=== PATIENT | male | born 1940 | race Two or more races ===

== ENCOUNTER 2023-10-17 09:01 | Outpatient (CLI) | payer OTHER | END 2023-10-17 09:03 | disposition home or self-care (01) | LOC: SONOGRAMA 09:01 | PROVIDERS: ATTEND Pathology Anatomic Pathology & Clinical Pathology | DX: D48.7 Neoplasm of uncertain behavior of other specified sites (principal); E04.2 Nontoxic multinodular goiter ==

== ENCOUNTER → 2024-05-01 | Emergency (ER) | payer OTHER ==
[~2024-05-01] VITALS: Ht 167.6 cm; Wt 81.6 kg
[~2024-05-01] MED LIST: AMIODARONE HCL100 MG PO; BUMETANIDE2 MG PO; COZAAR100 MG PO; ISORDIL TITRADOS5 MG PO; NORVASC5 MG PO; OMEGA-31000 MG PO; PROSTATE 2.4 C1 EACH PO; SYNTHROID75 MCG PO; TERAZOSIN HCL5 MG PO; ZETIA10 MG PO
[2024-05-01 09:40] LABS: HEMATOCRIT 28.8 % (39.0-48.0); HEMOGLOBIN 9.9 g/dL (13-16.00); MEAN CELL VOLUME 97.6 fL (80.0-100.00); MEAN CORPUSCULAR HEMOGLOBIN 33.5 pg (27.00-32.0); MEAN CORPUSCULAR HGB CONC 34.4 g/dl (32.0-36.0); PLATELET COUNT 152 K/uL (150-450); RED BLOOD COUNT 2.95 M/uL (4.00-6.00); RED CELL DISTRIBUTION WIDTH 16.3 % (11.5-14.5)
[2024-05-01 09:44] LABS: URINE APPEARANCE Clear; URINE BILIRRUBIN Negative (NEGATIVE); URINE BLOOD Trace; URINE COLOR Yellow; URINE GLUCOSE Negative (NEGATIVE); URINE KETONE Negative (NEGATIVE); URINE LEUKOCYTE Negative; URINE NITRATE Negative; URINE UROBILINOGEN 0.2 E.U./dl
[2024-05-01 09:49] LABS: URINE BACTERIA 40.2 uL (0.0-1933); URINE CAST 2.13 uL (0.0-1.40); URINE EPITHELIAL CELLS 2.1 uL (0.0-38.8); URINE RBC 6.5 uL (0.0-20.8); URINE WBC 4.9 uL (0.0-23.2)
[2024-05-01 10:10] LABS: INR 1.08; PARTIAL THROMBOPLASTIN TIME 27.6 SECONDS (22.0-34.0); PROTHROMBIN TIME 11.7 SECONDS (9.0-11.5)
[2024-05-01 10:15] LABS: URINE PROTEIN 300 (NEGATIVE)
[2024-05-01 10:15] LABS: BILIRUBIN TOTAL 0.49 mg/dL (0.3-1.2); CALCIUM 8.3 mg/dL (8.5-10.1); CREATININE SERUM 3.22 mg/dL (0.70-1.30); GFR 18.55; GLOBULINA 2.9 G/DL (2.4-3.5); MAGNESIUM 2.3 mg/dL (1.8-2.4); POTASSIUM 4.26 mEq/L (3.5-5.1); TOTAL PROTEIN 5.9 gm/dL (6.4-8.2)
== END | disposition home or self-care (01) ==
LOC: ER 08:22
PROVIDERS: Emergency Medicine
DX: R60.0 Localized edema (principal); I10 Essential (primary) hypertension; N28.9 Disorder of kidney and ureter, unspecified; Z98.890 Other specified postprocedural states; Z20.822 Contact with and (suspected) exposure to COVID-19; N50.89 Other specified disorders of the male genital organs